=== PATIENT | male | born 1965 | race American Indian/Alaskan Native ===

== ENCOUNTER 2017-12-11 22:22 | Emergency (ER) | payer MEDICAID ==
[2017-12-11 22:23] VITALS: BMI 31.5
[2017-12-11 22:33] VITALS: BP 107/75; PULSE 100; RESP 18; TEMP 97.6; O2SAT 96
[2017-12-11] MEDS ORDERED: Albuterol 0.083% Inhal Sol (2.5 mg/3 mL) UD ONE (23:34)
[2017-12-11] MEDS: Albuterol 0.083% Inhal Sol (2.5 mg/3 mL) UD INH SCH ×2 (23:42→23:55)
--- NOTE | 2017-12-12 00:18 | C.PDOC ---
History Of Present Illness 52 year old male who presents to the emergency department with a complaint of cough associated with congestion, headache and pleuritic chest tightness ongoing for 2 weeks. Patient recently completed a course of Zpack today given by his PMD but stated he felt no improvement. Denied any further medical complaints. PMD: none provided Time Seen by Provider: 12/11/17 23:02 Chief Complaint (Nursing): Cough, Cold, Congestion History Per: Patient History/Exam Limitations: no limitations Onset/Duration Of Symptoms: Other (x2 weeks) Current Symptoms Are (Timing): Still Present Past Medical History Reviewed: Historical Data, Nursing Documentation, Vital Signs Vital Signs: Last Vital Signs Temp 97.6 F 12/11/17 22:26 Pulse 100 H 12/11/17 22:26 Resp 18 12/11/17 22:26 BP 107/75 12/11/17 22:26 Pulse Ox 96 12/12/17 00:47 - Medical History PMH: Fractures (RIGHT FEMUR RODDING) Denies: Chronic Kidney Disease - [facility] Procedures ABDOMINAL WALL INCISION (12/27/14) DESTRUCT ABD WALL LESION (12/27/14) OTH & OPEN REP OTH HERNIA OF ANTER ABD WALL W GRF OR PROSTH (12/01/14) OTHER PLASTIC OPS FASCIA (12/27/14) Family History: States: Unknown Family Hx - Social History Hx Tobacco Use: No Hx Alcohol Use: Yes Hx Substance Use: No - Immunization History Hx Tetanus Toxoid Vaccination: No Hx Influenza Vaccination: No Hx Pneumococcal Vaccination: No Review Of Systems Except As Marked, All Systems Reviewed And Found Negative. ENT: Positive for: Nose Congestion Cardiovascular: Positive for: Chest Pain (pleuritic) Respiratory: Positive for: Cough Neurological: Positive for: Headache Physical Exam - Physical Exam Appears: Well, No Acute Distress Skin: Normal Color, No Rash Nose: Normal Oral Mucosa: Moist Neck: Normal, Normal ROM, Supple Chest: Symmetrical, Other (moderate congestion) Respiratory: No Normal Breath Sounds, Decreased Breath Sounds (moderate), Rhonchi Gastrointestinal/Abdominal: Normal Exam, Soft, No Tenderness Neurological/Psych: Oriented x3, Normal Speech, Normal Cognition ED Course And Treatment O2 Sat by Pulse Oximetry: 96 (RA) Pulse Ox Interpretation: Normal Medical Decision Making Medical Decision Making: Initial Impression: Cough Initial Plan: * CXR * Albuterol 2.5mg INH [id number] * Prednisone 20mg PO * Pt feels better after meds, RX given and will follow up with PMD Scribe Attestation: Documented by Becka Rogers, acting as a scribe for Tayla Quinn PA-C. Provider Scribe Attestation: All medical record entries made by the Scribe were at my direction and personally dictated by me. I have reviewed the chart and agree that the record accurately reflects my personal performance of the history, physical exam, medical decision making, and the department course for this patient. I have also personally directed, reviewed, and agree with the discharge instructions and disposition. Disposition Counseled Patient/Family Regarding: Diagnosis, Need For Followup, Rx Given - Disposition Referrals: Private MD, Office [Other] Disposition: HOME/ ROUTINE Disposition Time: 00:16 Condition: STABLE Additional Instructions: Increase PO fluids Decrease milk Take all meds as prescribed Follow up with pMD Return to ER if worse Instructions: Upper Respiratory Infection (ED) Forms: [employer] (British) - Clinical Impression Clinical Impression: Upper respiratory infection
--- NOTE | 2017-12-12 09:15 | RAD ---
Chest x-ray two views History: Cough. Comparison: None available. Findings: Mild venous congestion. Right hilar prominence. Heart size within normal limits. Impression: Mild venous congestion.
== END 2017-12-12 00:32 | disposition home or self-care (01) ==
LOC: C.ER 22:22
DX: J06.9 Acute upper respiratory infection, unspecified (principal)